=== PATIENT | male | born 1925 | race Caucasian/White ===

== ENCOUNTER 2016-09-05 17:44 | Emergency (ER) | payer OTHER ==
[2016-09-05 17:51] VITALS: TEMP 97.9; BMI 24.7
--- NOTE | 2016-09-05 19:49 | PDOC ---
History of Present Illness - General History Source: Patient, Family <Luiz Guy - Last Filed: 09/05/16 22:22> - General History Source: Patient Exam Limitations: No Limitations - History of Present Illness Initial Comments: 09/05/16 20:17 The patient is a 89 year old male, with a significant past medical history of hypertension, hyperlipidemia, CVA (Left frontal 2013), dementia, AF, CAD (s/p stents X2, and skin-scalp cancer, who presents to the emergency department complaining of elevated blood pressure since earlier today. The patient reports he has been feeling shaky and cold, but is unsure why. The patient denies any headache, dizziness, changes in vision, fever, or weakness. The patient reports he has been able eat normally. His last bowel movement was earlier today. He denies any abdominal pain, nausea, vomiting, diarrhea, or constipation. He denies any dysuria, hematuria, frequency, or urgency. The patient reports he is compliant with his medications. The patient denies any recent travel or sick contacts. Allergies: Levofloxacin, simvastatin Past Surgical History: Stents (X2), partial left knee replacement Social History: Former smoker (1974). Social ETOH use. No drug use. PCP: Dr. Chema Degroot <Nohemy Smith - Last Filed: 09/05/16 22:25> - General Chief Complaint: Blood Pressure Problem Stated Complaint: BLOOD PRESSURE PROBLEM Time Seen by Provider: 09/05/16 19:47 Past History - Past Medical History Anemia: No Asthma: No Cancer: Yes (SKIN-SCALP) Cardiac Disorders: Yes (AF, CAD, STENTS 10YRS AGO) CVA: Yes (L FRONTAL-06/2013) COPD: No CHF: No Dementia: Yes (FORGETFUL) Diabetes: No GI Disorders: No Disorders: No HTN: Yes Hypercholesterolemia: Yes Liver Disease: No Seizures: No Thyroid Disease: No - Surgical History Abdominal Surgery: No Appendectomy: No Cardiac Surgery: Yes (TWO STENTS-2002) Cholecystectomy: No Lung Surgery: No Neurologic Surgery: No Orthopedic Surgery: Yes (PARTIAL LEFT KNEE REPLACEMENT-2012) - Immunization History Immunization Up to Date: No - Psycho/Social/Smoking Cessation Hx Anxiety: No Suicidal Ideation: No Smoking Status: No Smoking History: Former smoker Have you smoked in the past 12 months: No Number of Cigarettes Smoked Daily: 8 If you are a former smoker, when did you quit?: 1974 Information on smoking cessation initiated: No Hx Alcohol Use: No Drug/Substance Use Hx: No Substance Use Type: Alcohol Hx Substance Use Treatment: No <Luiz Guy - Last Filed: 09/05/16 22:22> <Nohemy Smith - Last Filed: 09/05/16 22:25> - Past Medical History Allergies/Adverse Reactions: Allergies Allergy/AdvReac Type Severity Reaction Status Date / Time levofloxacin [From Levaquin] Allergy "hyper" Verified 09/05/16 20:38 simvastatin [From Zocor] Allergy "pain in Verified 09/05/16 20:38 legs" Home Medications: Ambulatory Orders Amiodarone HCl 100 mg PO DAILY 01/04/16 Amlodipine Besylate [Norvasc -] 2.5 mg PO BID 01/04/16 Cholecalciferol (Vitamin D3) [Vitamin D3] 400 unit PO DAILY 01/04/16 Donepezil HCl [Aricept -] 10 mg PO DAILY 01/04/16 Hydralazine HCl [Apresoline -] 25 mg PO BID 01/04/16 Lisinopril [Prinivil -] 40 mg PO DAILY 01/04/16 Memantine HCl [Namenda Xr] 28 mg PO DAILY 01/04/16 Metoprolol Succinate [Toprol XL -] 25 mg PO BID 01/04/16 Pravastatin Sodium [Pravachol -] 80 mg PO HS 01/04/16 Vitamin B Complex [Complex B-100] 1 each PO DAILY 01/04/16 Warfarin Na [Coumadin -] 1 mg PO DAILY 01/04/16 Acetaminophen [Tylenol .Regular Strength -] 650 mg PO Q6H PRN #0 tablet Review of Systems - Review of Systems Able to Perform ROS?: Yes Comments:: 09/05/16 20:17 CONSTITUTIONAL: PResent: +chills, +shakiness, +elevated blood pressure Absent: fever, no fatigue EYES: Absent: visual changes ENT: Absent: ear pain, no sore throat CARDIOVASCULAR: Absent: chest pain, no palpitations RESPIRATORY: Absent: cough, no SOB GI: Absent: abdominal pain, no nausea, no vomiting, no constipation, no diarrhea GENITOURINARY: Absent: dysuria, no frequency, no hematuria MUSCULOSKELETAL: Absent: back pain, no arthralgia, no myalgia SKIN: Absent: rash NEURO: Absent: headache <Nohemy Smith - Last Filed: 09/05/16 22:25> *Physical Exam - Vital Signs Last Vital Signs Temp Pulse Resp BP Pulse Ox 97.9 F 83 18 189/71 99 09/05/16 17:48 09/05/16 17:48 09/05/16 17:48 09/05/16 17:48 09/05/16 17:48 <Luiz Guy - Last Filed: 09/05/16 22:22> - Vital Signs Last Vital Signs Temp Pulse Resp BP Pulse Ox 97.9 F 83 18 189/71 99 09/05/16 17:48 09/05/16 17:48 09/05/16 17:48 09/05/16 17:48 09/05/16 17:48 - Physical Exam Comments: 09/05/16 20:17 GENERAL: Well-appearing, well-nourished. No apparent distress. HEENT: Normocephalic, atraumatic. PERRL, EOM intact. CARDIOVASCULAR: Normal S1, S2. Regular rate and rhythm. PULMONARY: Clear to auscultation bilaterally. ABDOMEN: Soft, non-distended, non-tender. EXTREMITIES: Normal ROM in all four extremities. No gross deformities. SKIN: Warm, dry. No rash NEUROLOGICAL: No focal neurological deficits. <Nohemy Smith - Last Filed: 09/05/16 22:25> Heart Score/ECG Review - ECG Intrepretation Comment:: 09/05/16 20:39 Vent Rate: 56 bpm IMPRESSION: Sinus bradycardia. Left axis deviation. Left bundle branch block. <LuisRobertdorian - Last Filed: 09/05/16 22:25> ED Treatment Course - LABORATORY CBC & Chemistry Diagram: 09/05/16 21:09 09/05/16 21:09 <Luiz Guy - Last Filed: 09/05/16 22:22> - LABORATORY CBC & Chemistry Diagram: 09/05/16 21:09 09/05/16 21:09 <Kareen Smithdeenadorian - Last Filed: 09/05/16 22:25> Medical Decision Making - Medical Decision Making 09/05/16 21:29 BP now is 156/85. Pt pending lab work. 09/05/16 22:[address] Degroot. Pt to be discharge and continue all of his usual medication 09/05/16 22:22 Dr. Guy: The scribe's documentation has been prepared under my direction and personally reviewed by me in its entirery. I confirm that the note above accurately reflects all work, treatment, procedures, and medical decision making performed by me. <Luiz Guy - Last Filed: 09/05/16 22:22> - Medical Decision Making 09/05/16 22:01 First call placed to Dr. Chema Degroot at 22:01. Awaiting call back. Case discussed with Dr. Degroot at 22:20. <Nohemy Smith - Last Filed: 09/05/16 22:25> *DC/Admit/Observation/Transfer - Discharge Dispostion Admit: No <Luiz Guy - Last Filed: 09/05/16 22:22> - Attestations Scribe Attestion: 09/05/16 20:18 Documentation prepared by Nohemy Smith, acting as medical historian for Luiz Guy DO. <Nohemy Smith - Last Filed: 09/05/16 22:25> Diagnosis at time of Disposition: Hypertension Qualifiers: Hypertension type: other secondary hypertension Qualified Code(s): I15.8 - Other secondary hypertension - Discharge Dispostion Disposition: HOME Condition at time of disposition: Stable - Referrals Referrals: Chema Degroot MD [Primary Care Provider] - - Patient Instructions Printed Discharge Instructions: DI for High Blood Pressure, How to Monitor Your Blood Pressure at Home Additional Instructions: continue all your current medications as usual in the morning
[2016-09-05 21:20] LABS: BASOPHIL 1.2 % (0-2.0); EOSINOPHIL 2.5 % (0-4.5); MCH 28.6 pg (25.7-33.7); MCHC 32.1 g/dl (32.0-35.9); MEAN CELL VOLUME 89.1 fl (80-96); MEAN PLT VOLUME 9.1 fl (7.5-11.1); NEUTROPHILS 74.8 % (42.8-82.8); PLATELET COUNT 188 K/MM3 (134-434); RDW 15.3 % (11.9-15.9); WHITE BLOOD COUNT 6.4 K/mm3 (4.0-10.0)
[2016-09-05 21:21] LABS: URINE APPEARANCE CLEAR; URINE BILIRUBIN NEGATIVE (NEGATIVE); URINE BLOOD NEGATIVE (NEGATIVE); URINE COLOR YELLOW; URINE GLUCOSE (UA) NEGATIVE (NEGATIVE); URINE KETONE NEGATIVE (NEGATIVE); URINE LEUK ESTERASE NEGATIVE (NEGATIVE); URINE NITRITE NEGATIVE (NEGATIVE); URINE UROBILINOGEN NEGATIVE E.U./dl (0.2-1.0)
[2016-09-05 21:27] LABS: URINE PROTEIN 1+ (NEGATIVE)
[2016-09-05 21:28] LABS: URINE RBC 1 /hpf (0-3); URINE WBC <1 /hpf (3-5)
[2016-09-05 21:39] LABS: INR 2.65 (0.82-1.09); PROTHROMBIN TIME (PATIENT) 29.7 SEC (9.98-11.88)
[2016-09-05 21:48] LABS: ALBUMIN 3.7 g/dl (3.4-5.0); ANION GAP 10 (8-16); BILIRUBIN,TOTAL 0.4 mg/dL (0.2-1.0); CALCIUM 8.9 mg/dL (8.5-10.1); CO2 25 mmol/L (21-32); CREATININE 1.4 mg/dL (0.7-1.3); GLUCOSE,RANDOM 121 mg/dL (74-106); MAGNESIUM 2.1 mg/dL (1.8-2.4); SGOT/AST 33 U/L (15-37); SGPT/ALT 38 U/L (12-78); TOT PROT 6.7 g/dl (6.4-8.2)
[2016-09-05 21:52] LABS: ALK PHOS 106 U/L (45-117); TROPONIN I < 0.02 ng/ml (0.00-0.05)
[2016-09-05 22:32] VITALS: BP 174/75; PULSE 80
--- NOTE | 2016-09-06 09:38 | EKG ---
Test Reason : Blood Pressure : / mmHG Vent. Rate : 056 BPM Atrial Rate : 056 BPM P-R Int : 190 ms QRS Dur : 172 ms QT Int : 544 ms P-R-T Axes : 052 -39 087 degrees QTc Int : 524 ms SINUS BRADYCARDIA LEFT AXIS DEVIATION LEFT BUNDLE BRANCH BLOCK ABNORMAL ECG WHEN COMPARED WITH ECG OF 04-JAN-2016 19:11, NO SIGNIFICANT CHANGE WAS FOUND Confirmed by VISHAL RAMOS MD ([id number]) on 09/06/2016 9:37:52 AM Referred By: Confirmed By:VISHAL RAMOS MD
== END 2016-09-05 22:31 | disposition home or self-care (01) ==
LOC: JER 17:44
DX: I10 Essential (primary) hypertension (principal); I25.10 Atherosclerotic heart disease of native coronary artery without angina pectoris; Z95.5 Presence of coronary angioplasty implant and graft; E78.00 Pure hypercholesterolemia, unspecified; I48.91 Unspecified atrial fibrillation; Z79.01 Long term (current) use of anticoagulants; F03.90 Unspecified dementia, unspecified severity, without behavioral disturbance, psychotic disturbance, mood disturbance, and anxiety; Z86.73 Personal history of transient ischemic attack (TIA), and cerebral infarction without residual deficits; Z85.828 Personal history of other malignant neoplasm of skin
CPT/HCPCS: 36415; 80053; 81003; 81015; 82550; 83690; 83735; 83880; 84484; 85025; 85610; 93005; 93010; 99283-25